=== PATIENT | female | born 1970 | race Caucasian/White ===

== ENCOUNTER 2019-05-01 20:38 | Inpatient (IN) | payer OTHER ==
--- NOTE | 2019-05-01 20:45 | PDOC ---
Rapid Medical Evaluation Medical Evaluation: I have performed a brief in-person evaluation of this patient. The patient presents with a chief complaint of: c/o L lower back pain x 3 days along with 1 episode of NBNB emesis today and dysuria; took naprosyn at 4 PM; was seen at [facility] and sent here for possible pyelonephritis Pertinent physical exam findings: NAD, no CVA tenderness, abdomen soft/ND/NT I have ordered the following: labs, ivf, meds The patient will proceed to the ED for further evaluation. 05/01/19 20:42
[2019-05-01] MEDS ORDERED: ONDANSETRON 4 MG/2 ML VIAL IVPUSH ONE (20:46)
[2019-05-01] MEDS ORDERED: SODIUM CHLORIDE 1,000 ML IV STA (20:46)
[2019-05-01] MEDS ORDERED: ACETAMINOPHEN 1000 MG/100 ML VIAL (NON FORMULARY) IVPB ONE (20:46)
--- NOTE | 2019-05-01 22:32 | PDOC ---
History of Present Illness - General Chief Complaint: Pain, Acute Stated Complaint: INFECTION Time Seen by Provider: 05/01/19 20:42 History Source: Patient Exam Limitations: No Limitations - History of Present Illness Initial Comments: 49 yo F PMH , p/w L flank pain. States pain has been present for the past 3 days, but worse today. Associated with burning during urination, nausea, with 1 episode of vomiting today. Went to [facility], has temperature of 101. Over 102 here. Denies CP, MILLER, dizziness, lightheadedness, abdominal pain, constipation/ diarrhea. 05/01/19 22:28 Past History - Past Medical History Allergies/Adverse Reactions: Allergies Allergy/AdvReac Type Severity Reaction Status Date / Time No Known Allergies Allergy Verified 05/01/19 20:45 COPD: No - Suicide/Smoking/Psychosocial Hx Smoking History: Never smoked Review of Systems - Review of Systems Constitutional: Yes: Fever. No: Chills HEENTM: No: Recent change in vision, Hearing Loss, Difficulty Swallowing Respiratory: No: Cough, Shortness of Breath Cardiac (ROS): No: Chest Pain ABD/GI: No: Constipated, Diarrhea, Nausea, Vomiting : Yes: Burning, Flank Pain. No: Discharge, Frequency Neurological: No: Headache *Physical Exam - Vital Signs Last Vital Signs Temp Pulse Resp BP Pulse Ox 102.8 F H 114 H 18 147/82 99 05/01/19 20:42 05/01/19 20:42 05/01/19 20:42 05/01/19 20:42 05/01/19 20:42 - Physical Exam Comments: Gen: NAD, appropriately dressed HEENT: atraumatic, normocephalic CV: tachycardic, regular rhythm Pulm: CTA b/l Abd: suprapubic tenderness, CVA tenderness on L side Extr: no edema 05/01/19 22:31 ED Treatment Course - LABORATORY CBC & Chemistry Diagram: 05/02/19 07:02 05/02/19 07:02 Medical Decision Making - Medical Decision Making Concern for acute pyelonephritis. Will get CBC CMP UA/UC Zofran fluids IV lactate Ofirmev 05/01/19 22:27 *DC/Admit/Observation/Transfer Diagnosis at time of Disposition: Pyelonephritis - Discharge Dispostion Condition at time of disposition: Stable - Referrals - Patient Instructions - Post Discharge Activity
[2019-05-01] MEDS ORDERED: ACETAMINOPHEN INJECTION 100 ML IVPB ONE (23:15)
[2019-05-01] MEDS ORDERED: ONDANSETRON 4 MG/2 ML VIAL ONE (23:15)
[2019-05-01 23:17] LABS: BASO % 0.3 % (0-2.0); EOS % 0.1 % (0-4.5); HEMATOCRIT 32.6 % (32.4-45.2); HEMOGLOBIN 10.4 GM/dL (10.7-15.3); LYMPH % 7.2 % (8-40); MCHC 31.8 g/dl (32.0-36.0); MEAN CELL VOLUME 78.4 fl (80-96); MEAN PLT VOLUME 8.4 fl (7.5-11.1); MONO % 5.9 % (3.8-10.2); NEUT % 86.5 % (42.8-82.8); PLATELET COUNT 341 K/MM3 (134-434); RBC 4.15 M/mm3 (3.60-5.2); RDW 15.5 % (11.6-15.6); WHITE BLOOD COUNT 19.1 K/mm3 (4.0-10.0)
[2019-05-01 23:40] LABS: ALBUMIN 3.8 g/dl (3.4-5.0); BILIRUBIN,TOTAL 0.5 mg/dL (0.2-1); BLOOD UREA NITROGEN 11.6 mg/dL (7-18); CALCIUM 8.9 mg/dL (8.5-10.1); CREATININE 0.8 mg/dL (0.55-1.3); TOT PROT 7.4 g/dl (6.4-8.2)
[2019-05-02] MEDS ORDERED: CEFTRIAXONE 1,000 MG in DEXTROSE 5%-WATER - 50 ML IVPB ONE (00:15)
[2019-05-02 00:32] LABS: HYALINE CASTS 1 /lpf (0-8); PH,URINE 6.5 (5.0-8.0); URINE APPEARANCE CLEAR; URINE BILIRUBIN NEGATIVE (NEGATIVE); URINE COLOR YELLOW; URINE GLUCOSE (UA) NEGATIVE (NEGATIVE); URINE KETONE NEGATIVE (NEGATIVE); URINE LEUK ESTERASE 2+ (NEGATIVE); URINE NITRITE NEGATIVE (NEGATIVE); URINE PROTEIN NEGATIVE (NEGATIVE); URINE RBC 1 /hpf (0-4); URINE UROBILINOGEN 0.2 mg/dL (0.2-1.0); URINE WBC 59 /hpf (0-5)
--- NOTE | 2019-05-02 01:11 | PDOC ---
*Physical Exam - Vital Signs Last Vital Signs Temp Pulse Resp BP Pulse Ox 102.8 F H 114 H 18 147/82 99 05/01/19 20:42 05/01/19 20:42 05/01/19 20:42 05/01/19 20:42 05/01/19 20:42 ED Treatment Course - LABORATORY CBC & Chemistry Diagram: 05/01/19 22:55 05/01/19 22:55 - ADDITIONAL ORDERS Additional order review: Laboratory Results 05/01/19 05/01/19 05/01/19 22:55 22:55 22:55 Sodium Potassium Chloride Carbon Dioxide Anion Gap BUN Creatinine Est GFR (CKD-EPI)AfAm Est GFR (CKD-EPI)NonAf Random Glucose Lactic Acid 1.2 Calcium Total Bilirubin AST ALT Alkaline Phosphatase Total Protein Albumin Urine Color Yellow Urine Appearance Clear Urine pH 6.5 Ur Specific [place] 1.007 L Urine Protein Negative Urine Glucose (UA) Negative Urine Ketones Negative Urine Blood Trace Urine Nitrite Negative Urine Bilirubin Negative Urine Urobilinogen 0.2 Ur Leukocyte Esterase 2+ H Urine WBC (Auto) 59 Urine RBC (Auto) 1 Urine Casts (Auto) 1 U Epithel Cells (Auto) 2.0 Urine Bacteria (Auto) 104.0 Urine HCG, Qual Negative 05/01/19 22:55 Sodium 140 Potassium 3.0 L Chloride 105 Carbon Dioxide 25 Anion Gap 9 BUN 11.6 Creatinine 0.8 Est GFR (CKD-EPI)AfAm 99.63 Est GFR (CKD-EPI)NonAf 85.96 Random Glucose 104 Lactic Acid Calcium 8.9 Total Bilirubin 0.5 AST 37 ALT 52 Alkaline Phosphatase 123 H Total Protein 7.4 Albumin 3.8 Urine Color Urine Appearance Urine pH Ur Specific [place] Urine Protein Urine Glucose (UA) Urine Ketones Urine Blood Urine Nitrite Urine Bilirubin Urine Urobilinogen Ur Leukocyte Esterase Urine WBC (Auto) Urine RBC (Auto) Urine Casts (Auto) U Epithel Cells (Auto) Urine Bacteria (Auto) Urine HCG, Qual 05/01/19 22:55 RBC 4.15 MCV 78.4 L MCHC 31.8 L RDW 15.5 MPV 8.4 Neutrophils % 86.5 H Lymphocytes % 7.2 L Monocytes % 5.9 Eosinophils % 0.1 Basophils % 0.3 - Medications Given in the ED: ED Medications Discontinued Medications Generic Name Dose Route Start Last Admin Trade Name Freq PRN Reason Stop Dose Admin Acetaminophen 1,000 mg 05/01/19 20:46 05/01/19 23:35 Ofirmev Injection - IVPB 05/01/19 20:47 1,000 mg ONCE ONE Administration Sodium Chloride 1,000 mls @ 1,000 mls/hr 05/01/19 20:46 05/01/19 23:35 Normal Saline - IV 05/01/19 21:45 1,000 mls/hr ASDIR STA Administration Ondansetron HCl 4 mg 05/01/19 20:46 05/01/19 23:36 Zofran Injection IVPUSH 05/01/19 20:47 4 mg ONCE ONE Administration Medical Decision Making - Medical Decision Making 05/02/19 01:10 Case discussed Aleah Fuentes, will admit to med/surg for pyelonephritis. *DC/Admit/Observation/Transfer Diagnosis at time of Disposition: Pyelonephritis - Discharge Dispostion Condition at time of disposition: Stable Decision to Admit order: Yes Decision to Admit order Date/Time: Decision to Admit Order Category Date Time Status Decision to Admit to Hospital Routine Admission 05/02/19 01:10 Ordered - Referrals - Patient Instructions - Post Discharge Activity
--- NOTE | 2019-05-02 01:14 | PDOC ---
Documentation entered by Mei Salter SCRIBE, acting as scribe for Landy Kaur DO. Landy Kaur DO: This documentation has been prepared by the trinity, Mei Salter SCRIBE, under my direction and personally reviewed by me in its entirety. I confirm that the documentation accurately reflects all work , treatment, procedures, and medical decision making performed by me. Attending Attestation - Resident Resident Name: Uziel Barrow - ED Attending Attestation I have performed the following: I have examined & evaluated the patient, The case was reviewed & discussed with the resident, I agree w/resident's findings & plan, Exceptions are as noted - HPI HPI: 05/01/19 22:13 The patient is a 49-year-old female, who presents to the ED with 2 days of LT- sided flank pain with associated dysuria, nausea, and vomiting. Patient has a fever of 102.8 while in the ED. - Physicial Exam PE: 05/01/19 22:14 GENERAL: Awake, in no acute distress HEAD: No signs of trauma EYES: ENT:clear without exudates. Moist mucosa NECK: Normal ROM, LUNGS:. Normal work of breathing. HEART: Regular rate and rhythm, ABDOMEN: Soft, nondistended CHEST WALL: BACK: No midline tenderness. EXTREMITIES:. No erythema, or tenderness NEUROLOGICAL: Alert, SKIN: Warm, Dry - Medical Decision Making 05/02/19 01:11 49-year-old female with flank pain and fever Urinalysis consistent with urinary tract infection Exam and history most consistent with pyelonephritis Due to patient's fever, elevated white blood cell count and vomiting she will be admitted to medical service for IV antibiotics IV fluids and antiemetics
[2019-05-02] MEDS ORDERED: CEFTRIAXONE 1 GM/50 ML BAG ONE ×2 (01:38→01:48)
[2019-05-02] MEDS ORDERED: ACETAMINOPHEN 325 MG TABLET (FP) PO PRN (02:00)
--- NOTE | 2019-05-02 02:00 | HP ---
CHIEF COMPLAINT: Dysuria, L flank pain PCP: Dr. Drake HISTORY OF PRESENT ILLNESS: Patient is a 49 year old female with no PMH who presents with L flank pain for 3 days. Pt endorses associated dysuria, suprapubic pain, nausea, fevers, and chills. She reports that her urine has been malodorous and cloudy since the onset of symptoms. Pt has had decreased appetite and 1 episode of NBNB vomiting last night. She denies any hematuria or any history of frequent UTIs or stones. ER course was notable for: (1) Fever: 102.8, Tachycardic: 114 (2) UA: 2+ LE, trace blood (3) 1gm ceftriaxone given Recent Travel: denies PAST MEDICAL HISTORY: No significant PMH PAST SURGICAL HISTORY: Social History: Smoking: denies Alcohol: denies Drugs: denies Family History: Allergies No Known Allergies Allergy (Verified 05/01/19 20:45) HOME MEDICATIONS: REVIEW OF SYSTEMS CONSTITUTIONAL: fever, chills Absent: diaphoresis, generalized weakness, malaise, loss of appetite, weight change HEENT: Absent: rhinorrhea, nasal congestion, throat pain, throat swelling, difficulty swallowing, mouth swelling, ear pain, eye pain, visual changes CARDIOVASCULAR: Absent: chest pain, syncope, palpitations, irregular heart rate, lightheadedness , peripheral edema RESPIRATORY: Absent: cough, shortness of breath, dyspnea with exertion, orthopnea, wheezing, stridor, hemoptysis GASTROINTESTINAL: nausea, vomiting, suprapubic pain Absent: abdominal distension, diarrhea, constipation, melena, hematochezia GENITOURINARY: dysuria, flank pain Absent: frequency, urgency, hesitancy, hematuria, genital pain MUSCULOSKELETAL: Absent: myalgia, arthralgia, joint swelling, back pain, neck pain SKIN: Absent: rash, itching, pallor HEMATOLOGIC/IMMUNOLOGIC: Absent: easy bleeding, easy bruising, lymphadenopathy, frequent infections ENDOCRINE: Absent: unexplained weight gain, unexplained weight loss, heat intolerance, cold intolerance NEUROLOGIC: Absent: headache, focal weakness or paresthesias, dizziness, unsteady gait, seizure, mental status changes, bladder or bowel incontinence PSYCHIATRIC: Absent: anxiety, depression, suicidal or homicidal ideation, hallucinations. PHYSICAL EXAMINATION Vital Signs - 24 hr 05/01/19 20:42 Temperature 102.8 F H Pulse Rate 114 H Respiratory 18 Rate Blood Pressure 147/82 O2 Sat by Pulse 99 Oximetry (%) GENERAL: Awake, alert, and fully oriented, in no acute distress. HEAD: Normal with no signs of trauma. EYES: Pupils equal, round and reactive to light, extraocular movements intact, sclera anicteric, conjunctiva clear. No lid lag. EARS, NOSE, THROAT: Ears normal, nares patent, oropharynx clear without exudates. Moist mucous membranes. NECK: Normal range of motion, supple without lymphadenopathy, JVD, or masses. LUNGS: Breath sounds equal, clear to auscultation bilaterally. No wheezes, and no crackles. No accessory muscle use. HEART: Regular rate and rhythm, normal S1 and S2 without murmur, rub or gallop. ABDOMEN: Tenderness to palpation in suprapubic region. Soft,not distended, normoactive bowel sounds, no guarding, no rebound, no masses. No hepatomegaly or splenomegaly. MUSCULOSKELETAL: Normal range of motion at all joints. No bony deformities or tenderness. No CVA tenderness. UPPER EXTREMITIES: 2+ pulses, warm, well-perfused. No cyanosis. No clubbing. No peripheral edema. LOWER EXTREMITIES: 2+ pulses, warm, well-perfused. No calf tenderness. No peripheral edema. NEUROLOGICAL: Cranial nerves II-XII intact. Normal speech. Normal gait. PSYCHIATRIC: Cooperative. Good eye contact. Appropriate mood and affect. SKIN: Warm, dry, normal turgor, no rashes or lesions noted, normal capillary refill. Laboratory Results - last 24 hr CBC, BMP 05/01/19 22:55 05/01/19 22:55 Urine Test Results Urine Color Yellow 05/01/19 22:55 Urine Appearance Clear 05/01/19 22:55 Urine pH 6.5 (5.0-8.0) 05/01/19 22:55 Ur Specific [place] 1.007 (1.010-1.035) L 05/01/19 22:55 Urine Protein Negative (NEGATIVE) 05/01/19 22:55 Urine Glucose (UA) Negative (NEGATIVE) 05/01/19 22:55 Urine Ketones Negative (NEGATIVE) 05/01/19 22:55 Urine Blood Trace (NEGATIVE) 05/01/19 22:55 Urine Nitrite Negative (NEGATIVE) 05/01/19 22:55 Urine Bilirubin Negative (NEGATIVE) 05/01/19 22:55 Ur Leukocyte Esterase 2+ (NEGATIVE) H 05/01/19 22:55 ASSESSMENT/PLAN: Patient is a 49 year old female with no PMH who presents with L flank pain and dysuria for 3 days. #Sepsis 2/2 pyelonephritis Febrile: 102.8, leukocytosis: 19.1, tachycardic: 114 Will cont 1gm ceftriaxone F/u urine and blood cx IV tylenol for pain Zofran for nausea, once confirm good QTc #Microcytic anemia Pt denies known hx of anemia Denies EGD/colonoscopy in the past No evidence of active bleeding Cont to monitor Hgb, if remains stable, then work up as outpatient #FEN IVF NS @ 100ml/hr Hypokalemia of 3.0 repleted with 40meq K-dur Regular diet #DVT ppx Lovenox 40mg SQ #Dispo Monitor on med-surg Visit type - Emergency Visit Emergency Visit: Yes ED Registration Date: 05/02/19 Care time: The patient presented to the Emergency Department on the above date and was hospitalized for further evaluation of their emergent condition. - New Patient This patient is new to me today: Yes Date on this admission: 05/02/19 - Critical Care Critical Care patient: No ATTENDING PHYSICIAN STATEMENT I saw and evaluated the patient. I reviewed the resident's note and discussed the case with the resident. I agree with the resident's findings and plan as documented. SUBJECTIVE: OBJECTIVE: ASSESSMENT AND PLAN:
[2019-05-02] MEDS ORDERED: POTASSIUM CHLORIDE TABS 20 MEQ TABLET.ER (FP) PO ONE (02:05)
--- NOTE | 2019-05-02 02:12 | PN ---
Teaching Attending Note Name of Resident: Santa Echevarria ATTENDING PHYSICIAN STATEMENT I saw and evaluated the patient. I reviewed the resident's note and discussed the case with the resident. I agree with the resident's findings and plan as documented. SUBJECTIVE: This is a 49 year old woman with no significant medical history who comes to the ED complaining of left flank pain, dysuria, fever, chills, urinary frequency x 3 days. OBJECTIVE: Vital Signs Period Temp Pulse Resp BP Sys/[place] Pulse Ox Last 24 Hr 102.8 F 114 18 147/82 99 HEART: S1S2, tachycardic LUNGS: Clear ABDOMEN: Soft, non-tender, non-distended, normal BS BACK: No CVA tenderness EXTREMITIES: No edema Laboratory Tests 05/01/19 05/01/19 05/01/19 22:55 22:55 22:55 WBC 19.1 H RBC 4.15 Hgb 10.4 L Hct 32.6 MCV 78.4 L MCH 25.0 L MCHC 31.8 L RDW 15.5 Plt Count 341 MPV 8.4 Absolute Neuts (auto) 16.5 H Neutrophils % 86.5 H Lymphocytes % 7.2 L Monocytes % 5.9 Eosinophils % 0.1 Basophils % 0.3 Nucleated RBC % 0 Sodium 140 Potassium 3.0 L Chloride 105 Carbon Dioxide 25 Anion Gap 9 BUN 11.6 Creatinine 0.8 Est GFR (CKD-EPI)AfAm 99.63 Est GFR (CKD-EPI)NonAf 85.96 Random Glucose 104 Lactic Acid Calcium 8.9 Total Bilirubin 0.5 AST 37 ALT 52 Alkaline Phosphatase 123 H Total Protein 7.4 Albumin 3.8 Urine Color Urine Appearance Urine pH Ur Specific [place] Urine Protein Urine Glucose (UA) Urine Ketones Urine Blood Urine Nitrite Urine Bilirubin Urine Urobilinogen Ur Leukocyte Esterase Urine WBC (Auto) Urine RBC (Auto) Urine Casts (Auto) U Epithel Cells (Auto) Urine Bacteria (Auto) Urine HCG, Qual Negative 05/01/19 05/01/19 22:55 22:55 WBC RBC Hgb Hct MCV MCH MCHC RDW Plt Count MPV Absolute Neuts (auto) Neutrophils % Lymphocytes % Monocytes % Eosinophils % Basophils % Nucleated RBC % Sodium Potassium Chloride Carbon Dioxide Anion Gap BUN Creatinine Est GFR (CKD-EPI)AfAm Est GFR (CKD-EPI)NonAf Random Glucose Lactic Acid 1.2 Calcium Total Bilirubin AST ALT Alkaline Phosphatase Total Protein Albumin Urine Color Yellow Urine Appearance Clear Urine pH 6.5 Ur Specific [place] 1.007 L Urine Protein Negative Urine Glucose (UA) Negative Urine Ketones Negative Urine Blood Trace Urine Nitrite Negative Urine Bilirubin Negative Urine Urobilinogen 0.2 Ur Leukocyte Esterase 2+ H Urine WBC (Auto) 59 Urine RBC (Auto) 1 Urine Casts (Auto) 1 U Epithel Cells (Auto) 2.0 Urine Bacteria (Auto) 104.0 Urine HCG, Qual ASSESSMENT AND PLAN: This is a 49 year old woman with no past medical history who presented to the ED with left flank pain, dysuria, fever, chills, urinary frequency. 1. Sepsis (fever, tachycardia, leukocytosis) secondary to acute pyelonephritis - Continue Rocephin - IV fluid - Follow up blood, urine cultures 2. Hypokalemia - Replete potassium 3. Anemia, microcytic - No evidence of active bleeding - Patient denies being told of anemia in past - She has never had EGD/colonoscopy - If hemoglobin remains stable, can have work up as outpatient
[2019-05-02] MEDS: SODIUM CHLORIDE 1,000 ML IV SCH ×3 (02:16→15:49)
[2019-05-02 04:47] VITALS: BMI 27.7
[2019-05-02 07:57] LABS: BASO % 0.2 % (0-2.0); EOS % 0.7 % (0-4.5); HEMOGLOBIN 9.5 GM/dL (10.7-15.3); LYMPH % 15.4 % (8-40); MCH 25.1 pg (25.7-33.7); MCHC 31.8 g/dl (32.0-36.0); MEAN PLT VOLUME 8.2 fl (7.5-11.1); NEUT % 75.7 % (42.8-82.8); PLATELET COUNT 332 K/MM3 (134-434); RDW 15.7 % (11.6-15.6); WHITE BLOOD COUNT 18.2 K/mm3 (4.0-10.0)
--- NOTE | 2019-05-02 08:30 | PN ---
Progress Note, Physician - Current Medication List Current Medications: Active Medications Acetaminophen (Tylenol -) 650 mg PO Q4H PRN PRN Reason: PAIN OR FEVER Enoxaparin Sodium (Lovenox -) 40 mg SQ DAILY XIOMY Sodium Chloride (Normal Saline -) 1,000 mls @ 100 mls/hr IV ASDIR XIOMY Last Admin: 05/02/19 02:54 Dose: 100 mls/hr Ceftriaxone Sodium 1 gm/ (Dextrose) 50 mls @ 200 mls/hr IVPB DAILY XIOMY; Protocol - Objective Vital Signs: Vital Signs Temperature 98.0 F 05/02/19 06:25 Pulse Rate 69 05/02/19 06:25 Respiratory Rate 18 05/02/19 06:25 Blood Pressure 105/50 L 05/02/19 06:25 O2 Sat by Pulse Oximetry (%) 99 05/01/19 20:42 Labs: CBC, BMP 05/02/19 07:02 Problem List - Problems (1) Anemia Assessment/Plan: FOLLOW TRENDS W/U ORDERED Code(s): D64.9 - ANEMIA, UNSPECIFIED (2) HTN (hypertension) Assessment/Plan: MONITOR Code(s): I10 - ESSENTIAL (PRIMARY) HYPERTENSION (3) Pyelonephritis Assessment/Plan: IVF IV ABX US Code(s): N12 - TUBULO-INTERSTITIAL NEPHRITIS, NOT SPCF ACUTE OR CHRONIC
[2019-05-02 08:39] LABS: ALBUMIN 3.1 g/dl (3.4-5.0); BILIRUBIN,TOTAL 0.5 mg/dL (0.2-1); BLOOD UREA NITROGEN 7.2 mg/dL (7-18); CREATININE 0.6 mg/dL (0.55-1.3); MAGNESIUM 2.4 mg/dL (1.8-2.4); POTASSIUM 4.1 mmol/L (3.5-5.1); TOT PROT 6.2 g/dl (6.4-8.2)
[2019-05-02] MEDS ORDERED: CEFTRIAXONE 1 GM in DEXTROSE 5%-WATER - 100 ML IVPB SCH (10:00)
[2019-05-02] MEDS: ENOXAPARIN NA (PORCINE) 40 MG/0.4 ML DISP.SYRIN SQ SCH (12:10)
--- NOTE | 2019-05-02 13:32 | PN ---
Progress Note (short form) - Note Progress Note: ID consult dictated imp/reccd pyelonephritis (left) UTI anemia continue rocephin continue ivf f/u renal sonogram Problem List - Problems (1) Pyelonephritis Code(s): N12 - TUBULO-INTERSTITIAL NEPHRITIS, NOT SPCF ACUTE OR CHRONIC (2) UTI (urinary tract infection) Code(s): N39.0 - URINARY TRACT INFECTION, SITE NOT SPECIFIED (3) Anemia Code(s): D64.9 - ANEMIA, UNSPECIFIED
--- NOTE | 2019-05-02 15:12 | EKG ---
Test Reason : Blood Pressure : / mmHG Vent. Rate : 079 BPM Atrial Rate : 079 BPM P-R Int : 174 ms QRS Dur : 120 ms QT Int : 408 ms P-R-T Axes : 035 012 021 degrees QTc Int : 467 ms NORMAL SINUS RHYTHM INCOMPLETE RBBB ABNORMAL ECG NO PREVIOUS ECGS AVAILABLE Confirmed by MD LAM, ROGERS ([id number]) on 05/02/2019 3:12:26 PM Referred By: Confirmed By:ROGERS FRITZ MD
--- NOTE | 2019-05-02 16:26 | CONS ---
DATE OF CONSULTATION: DATE OF DICTATION: 05/02/2019 INFECTIOUS DISEASE CONSULTATION REQUESTING PHYSICIAN: Valeria Padilla M.D. CONSULTING PHYSICIAN: Kasey Hilton M.D. HISTORY OF PRESENT ILLNESS: A 49-year-old woman, she is otherwise healthy. She presented with a 3-day history of dysuria and increased urinary frequency, it started on Wednesday. Symptoms persisted with vague pelvic pain extending to her left flank. She started having vomiting and fever at home as high as 102.8. She did not take any antibiotics. She has no history of prior UTI. She is sexually active. She in the OR was noted to have fever. She was tachycardic. She had a positive urinalysis. She was treated, had cultures sent, and was given ceftriaxone. PAST MEDICAL HISTORY: Unremarkable. SURGICAL HISTORY: Notable for 2 C-sections. SOCIAL HISTORY: There is no history of cigarette, alcohol, or substance use. 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 She is originally from [place]. She has no known drug allergies. She takes no medicine except an occasional Motrin or Tylenol. There is no history of recent travel. REVIEW OF SYSTEMS: Notable for fevers, chills, vomiting, the pelvic discomfort. She has no vaginal discharge, and she has some urinary discomfort frequency with the flank pain. She has no cough, she has no chest pain. PHYSICAL EXAMINATION: GENERAL: She is awake and alert. VITAL SIGNS: T-max was 102.8, current temperature is 99, pulse of 80, blood pressure 131/61, respiratory rate 18, she is saturating 99%. HEENT: Normocephalic. Eyes are anicteric. NECK: Supple. LUNGS: Clear to auscultation. HEART: Regular rate and rhythm. ABDOMEN: Soft. She has suprapubic discomfort. Her flank pain is resolved. EXTREMITIES: Without edema. She has no rash. LABORATORY: White count on admission was 19, this morning is 18, hemoglobin 9.5. MCV of 79 with platelets of 332. BUN and creatinine are 7.2 and 0.6. LFTs are normal, and urinalysis is notable for 2+ leukocytes and 59 white cells. Cultures are pending. Renal sonogram is pending. IMPRESSION: In summary, this is a 49-year-old woman with pyelonephritis, urinary tract infection, anemia microcytic. Would continue her on IV fluids and ceftriaxone as ordered. She is symptomatically improved. KASEY HILTON M.D. MICHELLE/[id number]
[2019-05-02] MEDS ORDERED: cefTRIAXone SODIUM 1 GM VIAL ONE (19:27)
[2019-05-02] MEDS ORDERED: DEXTROSE 5%-WATER - 50 ML IVPB ONE (19:27)
[2019-05-02] MEDS: CEFTRIAXONE 1 GM in DEXTROSE 5%-WATER - 50 ML IVPB SCH (19:32)
[2019-05-02] MEDS ORDERED: PT OWN MED DRAWER 7, Y5N ONE (19:32)
[2019-05-03] MEDS: SODIUM CHLORIDE 1,000 ML IV SCH ×2 (02:03→12:53)
--- NOTE | 2019-05-03 07:29 | CON.GI ---
Consult Consult Specialty:: GI Referred by:: Dr Valeria Padilla Reason for Consultation:: Anemia - History of Present Illness History of Present Illness: Patient is a 49 y/o female with no significant past medical history. Patient was admitted for pyelonephritis and noted with an incidental finding of anemia. Labs show drop in Hg from 10.4 to 9.5 and Stool OB negative. Patient says her PMD has put her on Iron pills in the past for anemia but is currently not taking them. She denies having had EGD or colonoscopy in the past. Currently denies rectal bleeding, melena, or blood in her stool. Hisotry of severe menorrhagia Anemia work up was done. - History Source History Provided By: Patient Limitations to Obtaining History: No Limitations - Past Medical History ...: No - Past Surgical History Past Surgical History: Yes: - Alcohol/Substance Use Hx Alcohol Use: No - Smoking History Smoking history: Never smoked - Social History ADL: Independent History of Recent Travel: No Home Medications - Allergies Allergies/Adverse Reactions: Allergies Allergy/AdvReac Type Severity Reaction Status Date / Time No Known Allergies Allergy Verified 05/01/19 20:45 Family Disease History - Family Disease History Family Disease History: CA: Grandparent (maternal grandmother, stomach cancer) Review of Systems - Review of Systems Constitutional: reports: No Symptoms Eyes: reports: No Symptoms HENT: reports: No Symptoms Neck: reports: No Symptoms Cardiovascular: reports: No Symptoms Respiratory: reports: No Symptoms Gastrointestinal: reports: No Symptoms Genitourinary: reports: No Symptoms Breasts: reports: No Symptoms Reported Musculoskeletal: reports: No Symptoms Integumentary: reports: No Symptoms Neurological: reports: No Symptoms Endocrine: reports: No Symptoms Hematology/Lymphatic: reports: No Symptoms Psychiatric: reports: No Symptoms Physical Exam-GI Vital Signs: Vital Signs Temperature 99.0 F 05/03/19 06:20 Pulse Rate 75 05/03/19 06:20 Respiratory Rate 18 05/03/19 06:20 Blood Pressure 127/75 05/03/19 06:20 O2 Sat by Pulse Oximetry (%) 99 05/02/19 10:00 Constitutional: Yes: Well Nourished, No Distress, Calm Eyes: Yes: Conjunctiva Clear HENT: Yes: Atraumatic Cardiovascular: Yes: Regular Rate and Rhythm Respiratory: Yes: Regular, CTA Bilaterally Gastrointestinal Inspection: Yes: WNL. No: Ascites, Distention, Hernia, Scars, Other ...Auscultate: Yes: Normoactive Bowel Sounds. No: Hyperactive Bowel Sounds, Hypoactive Bowel Sounds, No Bowel Sounds, Other ...Palpate: Yes: Soft. No: Firm/Rigid, Guarding, Hepatomegaly, Mass, Pulsatile Mass, Splenomegaly, Tenderness, Tenderness, Epigastium, Tenderness, Rebound, Other ...Percussion: Yes: Tympanitic. No: Dullness, Fluid Wave, Other Neurological: Yes: Alert, Oriented Psychiatric: Yes: Alert, Oriented Labs: CBC, BMP 05/02/19 07:02 05/02/19 07:02 Active Medications Generic Name Dose Route Start Last Admin Trade Name Freq PRN Reason Stop Dose Admin Acetaminophen 650 mg 05/02/19 02:00 Tylenol - PO Q4H PRN PAIN OR FEVER Enoxaparin Sodium 40 mg 05/02/19 10:00 05/02/19 12:10 Lovenox - SQ 40 mg DAILY XIOMY Administration Sodium Chloride 1,000 mls @ 100 mls/hr 05/02/19 02:00 05/03/19 02:03 Normal Saline - IV 100 mls/hr ASDIR XIOMY Administration Ceftriaxone Sodium 1 gm/ 50 mls @ 200 mls/hr 05/02/19 20:00 05/02/19 19:32 Dextrose IVPB 200 mls/hr DAILY XIOMY Administration Protocol Problem List - Problems (1) Anemia Assessment/Plan: >monitor Hg and transfuse for Hg <8.0 >stool OB neg >anemia work up shows low iron and iron saturation >patient instructed to follow up as outpatient for further GI work up > gynecology consult Code(s): D64.9 - ANEMIA, UNSPECIFIED
[2019-05-03] MEDS ORDERED: cefTRIAXone SODIUM 1 GM VIAL ONE (09:41)
[2019-05-03] MEDS ORDERED: DEXTROSE 5%-WATER - 50 ML IVPB ONE (09:41)
[2019-05-03] MEDS: ENOXAPARIN NA (PORCINE) 40 MG/0.4 ML DISP.SYRIN SQ SCH (10:02)
[2019-05-03] MEDS: CEFTRIAXONE 1 GM in DEXTROSE 5%-WATER - 50 ML IVPB SCH (10:02)
--- NOTE | 2019-05-03 11:25 | PN ---
Progress Note, Physician Chief Complaint: UTI Anemia History of Present Illness: Seen by ID On IV Rocephin stool ob negative, deficient in iron, hasn't been taking her iron pills - Current Medication List Current Medications: Active Medications Acetaminophen (Tylenol -) 650 mg PO Q4H PRN PRN Reason: PAIN OR FEVER Enoxaparin Sodium (Lovenox -) 40 mg SQ DAILY [facility] Last Admin: 05/03/19 10:02 Dose: 40 mg Ferrous Sulfate (Feosol -) 325 mg PO DAILY [facility] Sodium Chloride (Normal Saline -) 1,000 mls @ 100 mls/hr IV ASDIR XIOMY Last Admin: 05/03/19 02:03 Dose: 100 mls/hr Ceftriaxone Sodium 1 gm/ (Dextrose) 50 mls @ 200 mls/hr IVPB DAILY [facility]; Protocol Last Admin: 05/03/19 10:02 Dose: 200 mls/hr Iron Sucrose 300 mg/ Sodium (Chloride) 250 mls @ 250 mls/hr IVPB DAILY ONE Stop: 05/03/19 12:19 - Objective Vital Signs: Vital Signs Temperature 98.6 F 05/03/19 09:00 Pulse Rate 76 05/03/19 09:00 Respiratory Rate 18 05/03/19 09:00 Blood Pressure 146/84 05/03/19 09:00 O2 Sat by Pulse Oximetry (%) 100 05/03/19 09:00 Constitutional: Yes: Well Nourished, No Distress, Calm Cardiovascular: Yes: Regular Rate and Rhythm Respiratory: Yes: Regular Gastrointestinal: Yes: WNL, Normal Bowel Sounds, Soft Genitourinary: Yes: WNL Musculoskeletal: Yes: WNL Extremities: Yes: WNL Edema: No Peripheral Pulses WNL: Yes Neurological: Yes: Alert, Oriented Psychiatric: Yes: Alert, Oriented Labs: CBC, BMP 05/02/19 07:02 05/02/19 07:02 Problem List - Problems (1) Anemia Assessment/Plan: -Stool OB negative -GI consult appreciated -Venofer 300 mg daily x 3 days -Ferrous sulfate 1 tab po daily -monitor trend Code(s): D64.9 - ANEMIA, UNSPECIFIED (2) UTI (urinary tract infection) Assessment/Plan: -IV rocephin -ID consult appreciated -Cultures: Microbiology 05/01/19 22:55 Blood - Peripheral Venous Blood Culture - Preliminary Lactose Fermenting Neg Bacilli 05/01/19 22:55 Urine - Urine Clean Catch Urine Culture - Final NO GROWTH OBTAINED 05/01/19 22:55 Blood - Peripheral Venous Blood Culture - Preliminary NO GROWTH OBTAINED AFTER 24 HOURS, INCUBATION TO CONTINUE FOR 4 DAYS. -low grade temp overnight -tylenol for fever>100.0F Code(s): N39.0 - URINARY TRACT INFECTION, SITE NOT SPECIFIED (3) Hypokalemia Assessment/Plan: -resolved -received KCl40 meq once yesterday Code(s): E87.6 - HYPOKALEMIA Assessment/Plan see problem list
[2019-05-03] MEDS: IRON SUCROSE INJECTION 300 MG in SODIUM CHLORIDE 235 ML IVPB SCH (12:53)
--- NOTE | 2019-05-03 15:42 | PN ---
Progress Note (short form) - Note Progress Note: doing well no complaints no dysuria no flank pain Vital Signs Period Temp Pulse Resp BP Sys/Whitman Pulse Ox Last 24 Hr 98.6 F-99.9 F 75-77 18-18 127-146/75-84 100 cor-rrr lungs clear abd soft,nt no CVAT, no suprapubic tenderness ext no edema CBC, BMP 05/02/19 07:02 05/02/19 07:02 Microbiology 05/01/19 22:55 Blood - Peripheral Venous Blood Culture - Preliminary Lactose Fermenting Neg Bacilli 05/01/19 22:55 Urine - Urine Clean Catch Urine Culture - Final NO GROWTH OBTAINED 05/01/19 22:55 Blood - Peripheral Venous Blood Culture - Preliminary NO GROWTH OBTAINED AFTER 24 HOURS, INCUBATION TO CONTINUE FOR 4 DAYS. imp/reccd gram negative bacteremia secondary to pyelonephritis/UTI anemia continue rocephin continue ivf renal sonogram no obstruction continue iv antibiotics awaiting blood culture results Problem List - Problems (1) Pyelonephritis Code(s): N12 - TUBULO-INTERSTITIAL NEPHRITIS, NOT SPCF ACUTE OR CHRONIC (2) UTI (urinary tract infection) Code(s): N39.0 - URINARY TRACT INFECTION, SITE NOT SPECIFIED (3) Anemia Code(s): D64.9 - ANEMIA, UNSPECIFIED
[2019-05-04] MEDS: SODIUM CHLORIDE 1,000 ML IV SCH (00:56)
[2019-05-04] MEDS ORDERED: PT OWN MED DRAWER 7, Y5N ONE (10:05)
[2019-05-04] MEDS ORDERED: cefTRIAXone SODIUM 1 GM VIAL ONE (10:05)
[2019-05-04] MEDS ORDERED: DEXTROSE 5%-WATER - 50 ML IVPB ONE (10:06)
[2019-05-04] MEDS: CEFTRIAXONE 1 GM in DEXTROSE 5%-WATER - 50 ML IVPB SCH (10:10)
[2019-05-04] MEDS: FERROUS SO4 325 MG TABLET (FP) PO SCH (10:10)
[2019-05-04] MEDS: IRON SUCROSE INJECTION 300 MG in SODIUM CHLORIDE 235 ML IVPB SCH (10:11)
[2019-05-04] MEDS: ENOXAPARIN NA (PORCINE) 40 MG/0.4 ML DISP.SYRIN SQ SCH (10:15)
--- NOTE | 2019-05-04 13:30 | PN ---
Progress Note, Physician Chief Complaint: patient seen and examined iv abx for gram negative bacteremia - Current Medication List Current Medications: Active Medications Acetaminophen (Tylenol -) 650 mg PO Q4H PRN PRN Reason: PAIN OR FEVER Enoxaparin Sodium (Lovenox -) 40 mg SQ DAILY [facility] [place] Last Admin: 05/04/19 10:15 Dose: 40 mg Ferrous Sulfate (Feosol -) 325 mg PO DAILY [facility] [place] Last Admin: 05/04/19 10:10 Dose: 325 mg Sodium Chloride (Normal Saline -) 1,000 mls @ 100 mls/hr IV ASDIR [facility] [place] Last Admin: 05/04/19 00:56 Dose: 100 mls/hr Ceftriaxone Sodium 1 gm/ (Dextrose) 50 mls @ 200 mls/hr IVPB DAILY [facility] [place]; Protocol Last Admin: 05/04/19 10:10 Dose: 200 mls/hr Iron Sucrose 300 mg/ Sodium (Chloride) 250 mls @ 250 mls/hr IVPB DAILY [facility] [place] Stop: 05/05/19 10:59 Last Admin: 05/04/19 10:11 Dose: 250 mls/hr - Objective Vital Signs: Vital Signs Temperature 98.6 F 05/04/19 10:09 Pulse Rate 71 05/04/19 10:09 Respiratory Rate 18 05/04/19 10:09 Blood Pressure 141/86 05/04/19 10:09 O2 Sat by Pulse Oximetry (%) 100 05/03/19 21:00 Constitutional: Yes: Calm, Thin Cardiovascular: Yes: Regular Rate and Rhythm, S1, S2 Respiratory: Yes: CTA Bilaterally Gastrointestinal: Yes: Normal Bowel Sounds, Soft, Other (no CVA tendereness) Edema: No Labs: CBC, BMP 05/02/19 07:02 05/02/19 07:02 Problem List - Problems (1) Pyelonephritis Assessment/Plan: iv abx Code(s): N12 - TUBULO-INTERSTITIAL NEPHRITIS, NOT SPCF ACUTE OR CHRONIC (2) Anemia Assessment/Plan: venofer iv 2/3 Code(s): D64.9 - ANEMIA, UNSPECIFIED (3) Bacteremia due to Escherichia coli Assessment/Plan: iv rocephin Microbiology 05/01/19 22:55 Blood - Peripheral Venous Blood Culture - Final Escherichia Coli Code(s): R78.81 - BACTEREMIA
[2019-05-05] MEDS: SODIUM CHLORIDE 1,000 ML IV SCH ×2 (02:21→11:05)
[2019-05-05 07:07] LABS: BASO % 0.5 % (0-2.0); EOS % 2.3 % (0-4.5); HEMATOCRIT 30.9 % (32.4-45.2); LYMPH % 37.1 % (8-40); MCH 25.5 pg (25.7-33.7); MCHC 32.3 g/dl (32.0-36.0); MEAN CELL VOLUME 78.9 fl (80-96); MONO % 13.3 % (3.8-10.2); NEUT % 46.8 % (42.8-82.8); PLATELET COUNT 355 K/MM3 (134-434); RBC 3.92 M/mm3 (3.60-5.2); RDW 15.8 % (11.6-15.6); WHITE BLOOD COUNT 8.8 K/mm3 (4.0-10.0)
[2019-05-05 07:26] LABS: BILIRUBIN,TOTAL 0.2 mg/dL (0.2-1); CALCIUM 8.3 mg/dL (8.5-10.1); CREATININE 0.6 mg/dL (0.55-1.3); TOT PROT 6.6 g/dl (6.4-8.2)
--- NOTE | 2019-05-05 08:53 | PN ---
Progress Note (short form) - Note Progress Note: feels well no dysuria, no flank pain Vital Signs Period Temp Pulse Resp BP Sys/Whitman Pulse Ox Last 24 Hr 97.7 F-99.3 F 66-73 18-18 127-152/77-87 100-100 cor-rrr lungs clear abd soft,nt no cvat no suprapubic tenderness ext no edema CBC, BMP 05/05/19 06:30 05/05/19 06:30 Microbiology 05/01/19 22:55 Blood - Peripheral Venous Blood Culture - Preliminary NO GROWTH OBTAINED AFTER 72 HOURS, INCUBATION TO CONTINUE FOR 2 DAYS. 05/01/19 22:55 Blood - Peripheral Venous Blood Culture - Final Escherichia Coli 05/01/19 22:55 Urine - Urine Clean Catch Urine Culture - Final NO GROWTH OBTAINED renal sonogram normal imp/reccd gram negative bacteremia secondary to pyelonephritis/UTI-pansensitive Ecoli day #4 ceftriaxone, can switch to po bactrim 1 ds po bid when ready for discharge- treat total antibiotic days of 10 anemia Problem List - Problems (1) Pyelonephritis Code(s): N12 - TUBULO-INTERSTITIAL NEPHRITIS, NOT SPCF ACUTE OR CHRONIC (2) UTI (urinary tract infection) Code(s): N39.0 - URINARY TRACT INFECTION, SITE NOT SPECIFIED (3) Anemia Code(s): D64.9 - ANEMIA, UNSPECIFIED
[2019-05-05] MEDS ORDERED: cefTRIAXone SODIUM 1 GM VIAL ONE (10:53)
[2019-05-05] MEDS ORDERED: DEXTROSE 5%-WATER - 50 ML IVPB ONE (10:54)
[2019-05-05] MEDS: CEFTRIAXONE 1 GM in DEXTROSE 5%-WATER - 50 ML IVPB SCH (10:58)
[2019-05-05] MEDS: FERROUS SO4 325 MG TABLET (FP) PO SCH (10:58)
[2019-05-05] MEDS: ENOXAPARIN NA (PORCINE) 40 MG/0.4 ML DISP.SYRIN SQ SCH (10:59)
[2019-05-05] MEDS: IRON SUCROSE INJECTION 300 MG in SODIUM CHLORIDE 235 ML IVPB SCH (11:00)
[2019-05-05 15:12] VITALS: BP 139/82; PULSE 70; TEMP 98.5
[2019-05-05 15:28] LABS: ANISOCYTOSIS 2+; MACROCYTOSIS 0; PLATELET ESTIMATE NORMAL
== END 2019-05-05 15:52 | disposition home or self-care (01) | DRG 720 ==
LOC: JER 20:38 → JERBED 05-02 01:10 → J5S 05-02 02:39
PROVIDERS: ADMIT Internal Medicine; ATTEND Family Medicine
DX: A41.50 Gram-negative sepsis, unspecified (principal); E87.6 Hypokalemia; D72.829 Elevated white blood cell count, unspecified; R00.0 Tachycardia, unspecified; R50.9 Fever, unspecified; N10 Acute pyelonephritis; B96.20 Unspecified Escherichia coli [E. coli] as the cause of diseases classified elsewhere; D50.9 Iron deficiency anemia, unspecified
CPT/HCPCS: 36415; 76775-TC; 80053; 81003; 82272; 82607; 82728; 83540; 83550; 83605; 83735; 84100; 84703; 85025; 87040; 87086; 87186; 93005; 93010; 99283-25; J0131; J1756; J7030